=== PATIENT | female | born 1990 | race African-American/Black ===

== ENCOUNTER 2016-07-18 19:30 | Emergency (ER) | payer BC, OTHER ==
[2016-07-18] MEDS ORDERED: CEFTRIAXONE 1 GM VIAL ONE (21:02)
[2016-07-18] MEDS ORDERED: SODIUM CHLORIDE 0.9% 100 ML IV ONE (21:02)
[2016-07-18] MEDS ORDERED: SODIUM CHLORIDE 0.9% 1,000 ML ONE (21:02)
== END 2016-07-18 22:07 | disposition home or self-care (01) ==
LOC: ER 19:30
DX: O20.0 Threatened abortion (principal); O23.41 Unspecified infection of urinary tract in pregnancy, first trimester; O23.591 Infection of other part of genital tract in pregnancy, first trimester; N76.0 Acute vaginitis; Z3A.11 11 weeks gestation of pregnancy
CPT/HCPCS: 36415; 80048; 81001; 84702; 85025; 86901; 87088; 87491; 87591; 87800; 96361; 96365